=== PATIENT | female | born 1975 | race Caucasian/White ===

== ENCOUNTER 2016-05-31 14:17 | Emergency (ER) | payer OTHER ==
--- NOTE | 2016-05-31 14:29 | ER Document Report ---
ED Medical Screen (RME) - General Stated Complaint: CHEST PAIN Mode of Arrival: Ambulatory Information source: Patient Notes: pt presents to the ED with c/o midsternal chest pain since . Reports she took a trip to [place] on Thursday. She reports left leg pain, behind her knee, at that time. Denies past medical history of DVT PE. Reports she is not on control does not smoke. Reports family history of cardiac disease. Reports leg pain behind the left knee now. I have greeted and performed a rapid initial assessment of this patient. A comprehensive ED assessment and evaluation of the patient, analysis of test results and completion of the medical decision making process will be conducted by additional ED providers.
[2016-05-31] MEDS ORDERED: ASPIRIN 81 MG TABLET, CHEWABLE PO ONE (14:30)
[2016-05-31 14:49] LABS: ABSOLUTE EOSINOPHILS # (AUTO) 0.1 10^3/uL (0.0-0.6); ABSOLUTE LYMPHOCYTES (AUTO) 1.7 10^3/uL (0.5-4.7); ABSOLUTE MONOCYTES (AUTO) 0.5 10^3/uL (0.1-1.4); ABSOLUTE NEUT (AUTO) 4.9 10^3/uL (1.7-8.2); BASOPHILS % (AUTO) 0.5 % (0-2); EOSINOPHILS % (AUTO) 1.6 % (0-6); HEMATOCRIT 35.9 % (36.0-47.0); HEMOGLOBIN 12.3 g/dL (12.0-15.5); LYMPHOCYTES % (AUTO) 23.6 % (13-45); MEAN CORPUSCULAR HEMOGLOBIN 32.8 pg (27.0-33.4); MEAN CORPUSCULAR HGB CONC 34.2 g/dL (32.0-36.0); MEAN CORPUSCULAR VOLUME 96 fl (80-97); MONOCYTES % (AUTO) 6.7 % (3-13); RED BLOOD COUNT 3.74 10^6/uL (3.72-5.28); RED CELL DISTRIBUTION WIDTH 12.7 % (11.5-14.0); SEGMENTED NEUTROPHILS % (AUTO) 67.6 % (42-78); WHITE BLOOD COUNT 7.2 10^3/uL (4.0-10.5)
[2016-05-31 15:07] LABS: ALANINE AMINOTRANSFERASE 25 U/L (9-52); ALBUMIN 4.8 g/dL (3.5-5.0); ALKALINE PHOSPHATASE 37 U/L (38-126); ANION GAP 13 (5-19); ASPARTATE AMINO TRANSFERASE 21 U/L (14-36); BILIRUBIN,DIRECT 0.1 mg/dL (0.0-0.4); BILIRUBIN,TOTAL 0.3 mg/dL (0.2-1.3); BLOOD UREA NITROGEN 11 mg/dL (7-20); CALCIUM 10.2 mg/dL (8.4-10.2); CARBON DIOXIDE 27 mmol/L (22-30); CHLORIDE 104 mmol/L (98-107); CREATINE KINASE 63 U/L (30-135); CREATININE RESULT 0.53 mg/dL (0.52-1.25); GLUCOSE 100 mg/dL (75-110); POTASSIUM 4.3 mmol/L (3.6-5.0); SODIUM 143.8 mmol/L (137-145); TOTAL PROTEIN 7.3 g/dL (6.3-8.2)
[2016-05-31 15:20] LABS: CREATINE KINASE MB 0.32 ng/mL (<4.55); TROPONIN I < 0.012 ng/mL
--- NOTE | 2016-05-31 17:14 | EKG REPORT ---
SEVERITY:- ABNORMAL ECG - SINUS RHYTHM RIGHT ATRIAL ABNORMALITY : Confirmed by: Jose Alberto Hernandez MD 31-May-2016 17:13:24
--- NOTE | 2016-05-31 18:38 | ER Document Report ---
ED Cardiac - General Time seen by provider: 18:35 Mode of Arrival: Ambulatory Information source: Patient TRAVEL OUTSIDE OF THE [place] IN LAST 30 DAYS: No - HPI Patient complains to provider of: Chest pain Associated symptoms: Other - See above <KERRIE WEBSTER - Last Filed: 05/31/16 20:10> <NELIAALBERTO LINDA - Last Filed: 05/31/16 22:55> - General Chief Complaint: Chest Pain Stated Complaint: CHEST PAIN Notes: Patient is a 41 year old female who presents to the emergency department complaining of chest pain. Patient states the pain occurs when she breaths and when she lays down and moves around her chest mostly on the left side. Patient reports the pain is relieved by leaning forward. Patient reports she had chest pain last year but that it was different from todays. Patient reports it feels as though she has a cold but without any symptoms. Patient denies cough, rhinorrhea, and sore throat. Patient states that she was recently at therapy for pain in her right leg. 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 <KERRIE WEBSTER - Last Filed: 05/31/16 20:10> Review of Systems - Review of Systems Constitutional: No symptoms reported EENT: denies: Nose discharge, Throat pain Cardiovascular: See HPI, Chest pain Respiratory: denies: Cough Gastrointestinal: No symptoms reported Genitourinary: No symptoms reported Female Genitourinary: No symptoms reported Musculoskeletal: No symptoms reported Skin: No symptoms reported Hematologic/Lymphatic: No symptoms reported Neurological/Psychological: No symptoms reported -: Yes All other systems reviewed and negative <KERRIE WEBSTER - Last Filed: 05/31/16 20:10> Physical Exam - Vital signs Interpretation: Normal - General General appearance: Appears well, Alert - HEENT Head: Normocephalic, Atraumatic Eyes: Normal Pupils: PERRL - Respiratory Respiratory status: No respiratory distress Chest status: Nontender Breath sounds: Normal Chest palpation: Normal - Cardiovascular Rhythm: Regular Heart sounds: Normal auscultation Murmur: No - Abdominal Inspection: Normal Distension: No distension Bowel sounds: Normal Tenderness: Nontender Organomegaly: No organomegaly - Back Back: Normal, Nontender - Extremities General upper extremity: Normal inspection, Nontender, Normal color, Normal ROM , Normal temperature General lower extremity: Normal inspection, Nontender, Normal color, Normal ROM , Normal temperature, Normal weight bearing. No: Belkys's sign - Neurological Neuro grossly intact: Yes Cognition: Normal Orientation: AAOx4 [place] Coma Scale Eye Opening: Spontaneous [place] Coma Scale Verbal: Oriented [place] Coma Scale Motor: Obeys Commands [place] Coma Scale Total: 15 Speech: Normal Motor strength normal: LUE, RUE, LLE, RLE Sensory: Normal - Psychological Associated symptoms: Normal affect, Normal mood - Skin Skin Temperature: Warm Skin Moisture: Dry Skin Color: Normal <ALBERTO PICKENS - Last Filed: 05/31/16 22:55> - Vital signs Vitals: Temp Pulse Resp BP Pulse Ox 98.2 F 99 20 139/83 H 100 05/31/16 14:27 05/31/16 14:27 05/31/16 14:27 05/31/16 14:27 05/31/16 14:27 Course - Laboratory Result Diagrams: 05/31/16 14:44 05/31/16 14:44 <KERRIE WEBSTER - Last Filed: 05/31/16 20:10> - Laboratory Result Diagrams: 05/31/16 14:44 05/31/16 14:44 <ALBERTO PICKENS - Last Filed: 05/31/16 22:55> - Re-evaluation Re-evalutation: 05/31/16 Patient is a 41-year-old female with no past medical history who presents with pleuritic chest pain. Troponin negative. D-dimer negative. No acute findings on chest x-ray. Patient feels like she is getting a cold. I cannot find any dangerous cause of her chest pain. Appears well. Vitals are stable. Follow- up with PMD. Return if any worsening or concerning symptoms. (ALBERTO PICKENS) - Vital Signs Vital signs: Temp Pulse Resp BP Pulse Ox 97.8 F 77 16 104/74 100 05/31/16 21:35 05/31/16 21:35 05/31/16 21:35 05/31/16 21:35 05/31/16 21:35 - Laboratory Laboratory results interpreted by me: 05/31/16 05/31/16 14:44 14:44 Hct 35.9 L Alkaline Phosphatase 37 L Discharge <KERRIE WEBSTER - Last Filed: 05/31/16 20:10> <ALBERTO PICKENS - Last Filed: 05/31/16 22:55> - Discharge Clinical Impression: Atypical chest pain Condition: Stable Disposition: HOME, SELF-CARE Instructions: Chest Pain of Unclear Cause ([facility]), Pleurisy ([facility]) Additional Instructions: Please follow-up with your doctor within the next 3-5 days. Please return if you have any worsening or concerning symptoms. Scribe Attestation: 05/31/16 22:55 I personally performed the services described in the documentation, reviewed and edited the documentation which was dictated to the scribe in my presence, and it accurately records my words and actions. (ALBERTO PICKENS) Scribe Documentation - Scribe Written by Wilner:: wilner David, 05/31/162019 acting as scribe for :: Nelia <KERRIE WEBSTER - Last Filed: 05/31/16 20:10>
[2016-05-31 21:36] VITALS: BP 104/74
== END 2016-05-31 21:52 | disposition home or self-care (01) ==
LOC: ER 14:17
DX: R07.89 Other chest pain (principal)
CPT/HCPCS: 36415; 71020; 80053; 82550; 82553; 84484; 84703; 85025; 85379; 93005; 93010; 99285